=== PATIENT | female | born 1935 | race Caucasian/White ===

== ENCOUNTER → 2018-01-11 07:49 | Outpatient (CLI) | payer MEDICARE, SELFPAY ==
[2018-01-11 09:09] LABS: BUN Creatinine Ratio 21.8 (6-22); Blood Urea Nitrogen 37 mg/dL (7-17); Calcium 9.5 mg/dL (8.4-10.2); Carbon Dioxide 27 mmol/L (22-32); Chloride 104 mmol/L (98-107); Cholesterol 217 mg/dL (140-199); Estimated Glomerular Filt Rate 28.7 mL/min (>60); Glucose 100 mg/dL (80-110); HDL Cholesterol 83 mg/dL (40-60); HEMOLYSIS < 15 (0-50); LDL Cholesterol Calculated 115 mg/dL (<100); Potassium 4.3 mmol/L (3.4-5.1); Sodium 139 mmol/L (137-145); Triglycerides 94 mg/dL (35-150)
[2018-01-11 09:35] LABS: Thyroid Stimulating Hormone 3.44 uIU/mL (0.47-4.68)
== END ==
PROVIDERS: PCP Family Medicine; Visit Provider Family Medicine
DX: E03.9 Hypothyroidism, unspecified (principal); I10 Essential (primary) hypertension; E78.5 Hyperlipidemia, unspecified; Z00.00 Encounter for general adult medical examination without abnormal findings
CPT/HCPCS: 36415; 80048; 80061; 84443

== ENCOUNTER → 2018-03-09 12:17 | Outpatient (CLI) | payer MEDICARE, SELFPAY ==
[2018-03-09 13:19] LABS: BUN Creatinine Ratio 21.9 (6-22); Blood Urea Nitrogen 35 mg/dL (7-17); Calcium 9.5 mg/dL (8.4-10.2); Carbon Dioxide 31 mmol/L (22-32); Chloride 102 mmol/L (98-107); Estimated Glomerular Filt Rate 30.8 mL/min (>60); Glucose 100 mg/dL (80-110); HEMOLYSIS < 15 (0-50); Potassium 4.7 mmol/L (3.4-5.1); Sodium 141 mmol/L (137-145)
== END ==
PROVIDERS: PCP Family Medicine; Visit Provider Family Medicine
DX: N19 Unspecified kidney failure (principal)
CPT/HCPCS: 36415; 80048

== ENCOUNTER → 2018-12-27 14:28 | Outpatient (CLI) | payer MEDICARE, SELFPAY | PROVIDERS: PCP Family Medicine; Visit Provider Family Medicine | DX: M81.0 Age-related osteoporosis without current pathological fracture (principal) | CPT/HCPCS: 77080; 77081 ==

== ENCOUNTER → 2021-10-30 10:00 | Outpatient (CLI) | payer MEDICARE, SELFPAY ==
[2021-10-30 12:03] LABS: BUN Creatinine Ratio 19.7 (6-22); Blood Urea Nitrogen 30 mg/dL (7-17); Estimated Glomerular Filt Rate 33 mL/min (>60)
== END ==
PROVIDERS: PCP Family Medicine; Referring Provider Family Medicine; Visit Provider Family Medicine
DX: H53.2 Diplopia (principal); I10 Essential (primary) hypertension
CPT/HCPCS: 36415; 82565; 84520

== ENCOUNTER → 2021-11-01 13:15 | Outpatient (CLI) | payer MEDICARE, SELFPAY ==
--- NOTE | 2021-11-01 | DI.CT.S_ITS ---
PROCEDURE: CT ANGIO HEAD AND NECK INDICATIONS: Diplopia TECHNIQUE: Pre-contrast 4.5 mm thick sections acquired from the foramen magnum to the vertex. After the administration of intravenous contrast, 1 mm thick sections acquired from the aortic arch through the [place]. Post-contrast 4.5 mm thick sections then re-acquired from the foramen magnum to the vertex. 3-dimensional aqvvnss-mnpmxrnjc-vqkwgwaspy (MIP) and/or volume rendering reformats were acquired of the central intracranial vasculature and neck separately. For radiation dose reduction, the following was used: automated exposure control, adjustment of mA and/or kV according to patient size. COMPARISON: None. FINDINGS: Right cochlear implant. This creates streak artifact which mildly limits evaluation of the adjacent brain parenchyma. Within this limitation, there is no acute intracranial hemorrhage. [place]ar[place]te-white matter differentiation is grossly maintained with no CT evidence of an acute large territory infarct. There is mild global cerebral volume loss and oafz-dr-zlouvssa chronic microvascular ischemic change. No acute orbital abnormality. Paranasal sinuses and mastoid air cells predominantly clear. No acute or suspicious osseous lesion. Neck CT ANGIOGRAPHY: Anterior circulation: Standard 3 vessel aortic arch anatomy. Mild atherosclerotic change in the common carotid arteries and carotid bifurcations without hemodynamically significant stenosis. Posterior circulation: Atherosclerotic calcifications at the origins of the vertebral arteries. No hemodynamically significant stenosis. Head CT ANGIOGRAPHY: Carotid system: No hemodynamically significant stenosis of the anterior or middle cerebral arteries. Atherosclerotic calcifications in the carotid siphons without hemodynamically significant stenosis. Posterior circulation: The V4 segments and basilar artery are widely patent. Posterior cerebral arteries are unremarkable. IMPRESSION: No acute intracranial abnormality. No hemodynamically significant stenosis of the major intracranial or extracranial arterial vasculature. Any quantitative measurements of stenosis were performed using NASCET criteria. Dictated by: Joshua Wu M.D. on 11/01/2021 at 16:14 Approved by: Joshua Wu M.D. on 11/01/2021 at 16:18
== END ==
PROVIDERS: PCP Family Medicine; Referring Provider Family Medicine; Visit Provider Family Medicine
DX: H53.2 Diplopia (principal); I10 Essential (primary) hypertension
CPT/HCPCS: 70496; 70498

== ENCOUNTER → 2021-12-25 09:36 | Outpatient (CLI) | payer MEDICARE, SELFPAY | PROVIDERS: PCP Family Medicine; Referring Provider Family Medicine; Visit Provider Family Medicine | DX: M85.852 Other specified disorders of bone density and structure, left thigh (principal); Z78.0 Asymptomatic menopausal state | CPT/HCPCS: 77080 ==

== ENCOUNTER → 2022-04-14 10:09 | Outpatient (CLI) | payer MEDICARE, SELFPAY ==
--- NOTE | 2022-04-14 | DI.ECHO.S_ITS ---
[facility] +---------+ [facility] +---------+ : : [address] : : : : [id number] : : : : Phone: [phone]+ Echocardiogram Report + + :Name: VIVEK BRAGA Study Date: 04/14/2022 Height: 64 in : :[facility] ReadingLocation: Weight: 120 lb : : Gender: Female BSA: 1.6 m2 : :: 1935 Age: 86 yrs BP: 179/95 mmHg: :Reason For Study: Aortic valve regurgitation : :Ordering Physician: NOEL, : :MAVIS Performed By: Austen Smith : :Referring: MAVIS COHEN : + + Interpretation Summary Normal left ventricle size with ejection fraction 65-70%. Diastolic parameters suggest a relaxation abnormality of the left ventricle, consistent with probable normal filling pressures. Mild aortic valve sclerosis. Mild mitral annular calcification. Mild tricuspid regurgitation. Comparison is made with the echocardiogram of 11/29/2013, there has been no significant change. Procedure: A two-dimensional transthoracic echocardiogram with color flow and Doppler was performed. The study quality was technically adequate. Comparison is made with the echocardiogram of 11/29/2013. Left Ventricle: The left ventricle is normal in size and wall thickness. The ejection fraction is estimated to be 65-70%. There are no focal wall motion abnormalities. Diastolic parameters suggest a relaxation abnormality of the left ventricle, consistent with probable normal filling pressures. Right Ventricle: The right ventricle is normal in size and function. Atria: Both atria are normal in size. The interatrial septum grossly appears intact with no obvious evidence for an atrial septal defect. Mitral Valve: There is mild mitral annular calcification. There is trace mitral regurgitation. Aortic Valve: There is mild aortic valve sclerosis. The aortic valve is trileaflet. The aortic valve opens well. No aortic regurgitation is present. Tricuspid Valve: The tricuspid valve is normal in structure and function. There is mild tricuspid regurgitation. The right ventricular systolic pressure is estimated to be at least 25 mmHg based on an estimated right atrial pressure of 3 mm Hg. Pulmonic Valve: The pulmonic valve is not well seen, but is grossly normal. There is no pulmonic valvular regurgitation. Great Vessels: The aortic root is normal size. The dimensions of the ascending aorta are normal. The IVC is of normal diameter and collapses greater than 50% with a sniff. This suggests a low right atrial pressure of 3 mm Hg. Pericardium/ Pleura There is no pericardial effusion. There is no pleural effusion. MMode/2D Measurements & Calculations LVIDd: 4.0 cm LVOT diam: 2.0 cm LVIDs: 2.3 cm Ao root diam: 3.1 cm FS: 42.5 % asc Aorta Diam: 3.3 cm IVSd: 0.90 cm LVPWd: 1.0 cm LV lay. diameter/BSA (cm/m^2): 2.5 LV sys. diameter/BSA (cm/m^2): 1.5 LA dimension: 2.9 cm RA long axis: 5.1 cm LA A2 area: 15.4 cm2 LA A4 area: 13.7 cm2 LA length (vol): 5.1 cm LA vol: 35.0 ml LA vol index: 22.2 ml/m2 TAPSE_phl: 2.3 cm Doppler Measurements & Calculations Ao V2 max: 164.0 cm/sec LVOT Max Miller: 146.0 cm/sec Ao V2 mean: 124.0 cm/sec LV V1 max P.5 mmHg Ao max P.0 mmHg LV V1 VTI: 35.8 cm Ao mean P.0 mmHg JOSE(I,D): 3.0 cm2 Ao V2 VTI: 37.8 cm JOSE(V,D): 2.8 cm2 sev ratio: 0.95 JOSE indexed to BSA (cm^2/m^2): 1.9 MV E max miller: 72.8 cm/sec TR max miller: 233.0 cm/sec MV A max miller: 110.0 cm/sec TR max P.7 mmHg MV E/A: 0.66 Med Peak E' Miller: 5.1 cm/sec E/E' med: 14.2 Lat Peak E' Miller: 6.4 cm/sec E/E' lat: 11.4 E/e' average: 12.8 MV dec time: 0.34 sec SV(LVOT): 112.5 ml AV VR_phl: 0.89 JOSE(VTI)/BSA_phl: 1.9 MV P1/2t-pr_phl: 98.0 msec Electronically signed by: Dary Alexis on Reading Physician:04/14/2022 12:56 PM
== END ==
PROVIDERS: PCP Family Medicine; Referring Provider Family Medicine; Visit Provider Family Medicine
DX: I08.2 Rheumatic disorders of both aortic and tricuspid valves (principal)
CPT/HCPCS: 93306

== ENCOUNTER → 2022-06-02 11:42 | Outpatient (CLI) | payer MEDICARE, SELFPAY ==
--- NOTE | 2022-06-02 | DI.RAD.S_ITS ---
PROCEDURE: XR HIP W PEL IF DONE LT 2V INDICATIONS: left hip pain TECHNIQUE: AP pelvis and lateral view of the left hip acquired. COMPARISON: [facility], , HIP 2V RIGHT, 05/10/2012, 10:12. FINDINGS: Bones: Patient is status post right hip arthroplasty, with hardware components in expected positions. The hip joint appears congruent. No evidence of hardware loosening or failure. Moderate left hip joint osteoarthritic changes are noted. No evidence of avascular necrosis of femoral head. No fracture or dislocation. Soft tissues: No suspicious soft tissue densities. IMPRESSION: Prior right total hip arthroplasty. Anatomic right hip alignment. No gross hardware complication. Moderate left hip joint osteoarthritis. No left hip fracture or dislocation. No evidence of avascular necrosis. Dictated by: Nolberto Rob M.D. on 06/02/2022 at 14:44 Approved by: Nolberto Rob M.D. on 06/02/2022 at 14:45
== END ==
PROVIDERS: PCP Family Medicine; Referring Provider Family Medicine; Visit Provider Family Medicine
DX: M16.11 Unilateral primary osteoarthritis, right hip (principal); M25.552 Pain in left hip; Z96.641 Presence of right artificial hip joint
CPT/HCPCS: 73502